=== PATIENT | male | born 1985 | race African-American/Black ===

== ENCOUNTER 2022-11-04 13:04 | Inpatient (IN) | payer SELFPAY ==
[2022-11-04] MEDS ORDERED: Sodium Chloride 0.9% 1,000 ML ONE ×3 (13:44→15:26)
[2022-11-04 13:46] LABS: Bilirubin Negative (Negative); Blood, Urine Trace (Negative); Clarity Clear (Clear); Glucose, Urine (Dipstick) Negative (Negative); Ketone, Urine Negative (Negative); Leukocyte Negative (Negative); Nitrite Negative (Negative); Protein, Urine (Dipstick) Trace mg/dL (Neg-Trace); pH, Urine 5.5 (5.0-9.0)
[2022-11-04 13:47] LABS: Specific Gravity, Urine 1.025 (1.002-1.036)
[2022-11-04 13:49] LABS: Bacteria/HPF Rare-Few HPF (None Seen); CAUTI Indications for Culture Dysuria,urgency,freq; RBC/HPF 0-3 HPF (0-3); Squamous Epithelial 0-3 HPF (0-3); WBC/HPF 0-3 HPF (0-3)
[2022-11-04 13:50] LABS: Urine Culture Reflex No No
[2022-11-04 14:28] LABS: ALT (SGPT) 30 U/L (8-55); AST (SGOT) 65 U/L (5-34); Albumin 4.3 g/dL (3.5-5.0); Alkaline Phosphatase 61 U/L (40-110); Anion Gap 14 mmol/L (10-20); BUN (Urea Nitrogen) 15 mg/dL (8.9-20.6); Bilirubin, Total 0.5 mg/dL (0.2-1.2); CK (CPK) 3787 U/L (30-200); Calc. Creatinine Clearance 0 mL/min (70-130); Calcium 8.8 mg/dL (7.8-10.44); Carbon Dioxide 23 mmol/L (22-29); Chloride 105 mmol/L (98-107); Estimated GFR 84; Globulin 3.2 g/dL (2.4-3.5); Glucose 98 mg/dL (70-105); Magnesium 2.1 mg/dL (1.6-2.6); Protein, Total 7.5 g/dL (6.0-8.3); Sodium 138 mmol/L (136-145)
[2022-11-04 14:34] LABS: Eosinophils 3 % (0-10); Hemoglobin 14.1 g/dL (14.0-18.0); Large Platelets SLIGHT (None Seen); Lymphocytes 30 % (21-51); MDiff Complete? YES; Mean Corpuscular HGB CONC 32.5 g/dL (32.0-36.0); Mean Corpuscular Hemoglobin 28.4 pg (27.0-31.0); Mean Corpuscular Volume 87.4 fl (78.0-98.0); Monocytes 14 % (0-10); Neutrophil 44 % (42-75); Platelet Adequacy Comment Appears Adequate; Platelet Count 162 10x3/uL (130-400); RBC Distribution Width 13.6 % (11.5-14.5); Reactive Lymphocytes 9 % (0-10); Red Blood Cell (RBC) Count 4.96 mill/uL (4.70-6.10); White Blood Cell (WBC) Count 5.7 10x3/uL (4.8-10.8)
[2022-11-04 16:10] VITALS: BMI 43.1
[2022-11-04] MEDS ORDERED: Sodium Chloride 0.9% 1,000 ML IV SCH (16:15)
[2022-11-04] MEDS ORDERED: Cyclobenzaprine 10 MG TAB PO PRN (17:32)
[2022-11-04] MEDS ORDERED: Acetaminophen 650 MG Suppository PR PRN (17:36)
[2022-11-04] MEDS ORDERED: Acetaminophen 325 MG TAB PO PRN (18:06)
[2022-11-04] MEDS: Sodium Chloride 0.9% 1,000 ML IV SCH (21:02)
[2022-11-05] MEDS: Sodium Chloride 0.9% 1,000 ML IV SCH ×2 (05:30→14:57)
[2022-11-05 13:34] LABS: #Basophils 0.1 thou/uL (0.0-0.2); #Eosinphils 0.1 thou/uL (0.0-0.7); #Lymphocytes 1.7 thou/uL (1.20-3.40); #Monocytes 0.5 thou/uL (0.11-0.59); #Neutrophils 1.3 thou/uL (1.40-6.50); %Basophils 1.4 % (0.0-1.0); %Eosinophils 1.4 % (0.0-10.0); %Lymphocytes 47.4 % (21.0-51.0); %Monocytes 14.7 % (0.0-10.0); %Neutrophils 35.1 % (42.0-75.0); Giant Platelets SLIGHT HPF (0-5); Hemoglobin 13.7 g/dL (14.0-18.0); Large Platelets SLIGHT (None Seen); Mean Corpuscular HGB CONC 32.1 g/dL (32.0-36.0); Mean Corpuscular Hemoglobin 28.6 pg (27.0-31.0); Nucleated RBC (Manual Ct) 0 % (0); Platelet Adequacy Comment Appears Adequate; Platelet Count 143 10x3/uL (130-400); Red Blood Cell (RBC) Count 4.81 mill/uL (4.70-6.10); White Blood Cell (WBC) Count 3.6 10x3/uL (4.8-10.8)
[2022-11-05 14:59] LABS: ALT (SGPT) 26 U/L (8-55); AST (SGOT) 46 U/L (5-34); Albumin 3.6 g/dL (3.5-5.0); Alkaline Phosphatase 52 U/L (40-110); Anion Gap 10 mmol/L (10-20); BUN (Urea Nitrogen) 7 mg/dL (8.9-20.6); Bilirubin, Total 0.5 mg/dL (0.2-1.2); Calc. Creatinine Clearance 226 mL/min (70-130); Calcium 8.4 mg/dL (7.8-10.44); Carbon Dioxide 22 mmol/L (22-29); Chloride 111 mmol/L (98-107); Estimated GFR 115; Glucose 87 mg/dL (70-105); Potassium 4.2 mmol/L (3.5-5.1); Protein, Total 6.6 g/dL (6.0-8.3); Sodium 139 mmol/L (136-145)
[2022-11-05] MEDS ORDERED: Sodium Chloride 0.45% 1,000 ML IV SCH (16:45)
[2022-11-06 10:47] LABS: ALT (SGPT) 26 U/L (8-55); AST (SGOT) 35 U/L (5-34); Albumin 3.8 g/dL (3.5-5.0); Alkaline Phosphatase 55 U/L (40-110); Anion Gap 9 mmol/L (10-20); BUN (Urea Nitrogen) 8 mg/dL (8.9-20.6); Bilirubin, Total 0.4 mg/dL (0.2-1.2); CK (CPK) 1437 U/L (30-200); Calc. Creatinine Clearance 204 mL/min (70-130); Calcium 8.8 mg/dL (7.8-10.44); Carbon Dioxide 24 mmol/L (22-29); Chloride 110 mmol/L (98-107); Estimated GFR 108; Globulin 3.2 g/dL (2.4-3.5); Glucose 116 mg/dL (70-105); Potassium 4.1 mmol/L (3.5-5.1); Sodium 139 mmol/L (136-145)
[2022-11-06 14:14] VITALS: BP 141/83; TEMP 98.5
== END 2022-11-06 14:40 | disposition home or self-care (01) | DRG 558 ==
LOC: MADERS 13:04 → MADMS 15:12
PROVIDERS: ADMIT Family Medicine; ATTEND Family Medicine
DX: M62.82 Rhabdomyolysis (principal); Z68.1 Body mass index [BMI] 19.9 or less, adult; R74.01 Elevation of levels of liver transaminase levels; E66.9 Obesity, unspecified; D72.819 Decreased white blood cell count, unspecified; D64.9 Anemia, unspecified; F17.210 Nicotine dependence, cigarettes, uncomplicated; F12.10 Cannabis abuse, uncomplicated
CPT/HCPCS: 36415; 80053; 81001; 82550; 83735; 84484; 85025; 93005; 96360; J7050